=== PATIENT | female | born 1945 | race African-American/Black ===

== ENCOUNTER 2019-12-27 15:33 | Emergency (ER) | payer OTHER ==
[~2019-12-27] VITALS: Ht 170.2 cm; Wt 90.0 kg
[2019-12-27] MEDS ORDERED: TETANUS, DIPHTHERIA, PERTUSSIS VAC/PF 0.5ML (>7YR OLD) IM ONE (16:45)
[2019-12-27] MEDS ORDERED: LEVETIRACETAM 500MG PREMIX 100 ML IV ONE (16:45)
[2019-12-27] MEDS ORDERED: LIDOCAINE 1%/EPI 1:100,000 10 ML VIAL IJ ONE (16:45)
[2019-12-27] MEDS ORDERED: SODIUM CHLORIDE 0.9% 1,000 ML IV ONE (16:45)
[2019-12-27] MEDS ORDERED: BACITRACIN ZINC OINT UDPKT TOP ONE (16:45)
[2019-12-27 17:13] LABS: CHLORIDE 107 mEq/L (98-107)
[2019-12-27 17:16] LABS: BASOPHILS % 0.3 % (0.0-2.0); EOSINOPHILS % 0.6 % (0.0-5.0); HEMATOCRIT. 37.1 % (36.0-48.0); HEMOGLOBIN. 12.1 g/dL (12.0-16.0); LYMPHOCYTES % 11.3 % (20.0-50.0); MEAN CORPUSCULAR HEMOGLOBIN 28.7 pg (28.0-32.0); MEAN CORPUSCULAR VOLUME 87.9 fL (81.0-99.0); MEAN PLATELET VOLUME 7.9 fl (7.4-10.4); NEUTROPHILS % 80.8 % (40.0-76.0); PARTIAL THROMBOPLASTIN TIME 23.2 sec (23.4-31.0); PLATELET 218 x1000/uL (130-400); PROTHROMBIN TIME 10.5 sec (9.6-11.0); RED BLOOD CELL COUNT 4.22 mill/uL (4.2-5.4); RED CELL DISTRIBUTION WIDTH 13.8 % (11.6-14.6)
[2019-12-27 17:18] LABS: ETHANOL BLOOD < 10 mg/dL
[2019-12-27] MEDS ORDERED: LIDOCAINE HCL/EPINEPHRINE 1%-EPI 1:100,000 20 ML VIAL INFIL ONE (17:30)
[2019-12-27] MEDS ORDERED: ONDANSETRON HCL 4MG/2ML INJ IV STA (19:23)
[2019-12-27] MEDS ORDERED: MORPHINE SULFATE 4 MG/ML CPJ (NOT FOR IM USE) IV STA (19:23)
[2019-12-27] MEDS ORDERED: CEFAZOLIN 1000MG PREMIX 50 ML IV ONE (19:30)
[2019-12-27] MEDS ORDERED: HYDROMORPHONE HCL/PF 2MG/ML CPJ IV ONE (23:00)
[2019-12-27] MEDS ORDERED: IOHEXOL-350 100 ML BOTTLE ONE ×2 (23:00→23:07)
[2019-12-28 00:03] VITALS: BP 134/61
== END 2019-12-28 00:17 | disposition short-term general hospital (02) ==
LOC: ER 15:33
DX: R55 Syncope and collapse (principal); S22.41XA Multiple fractures of ribs, right side, initial encounter for closed fracture; S02.2XXA Fracture of nasal bones, initial encounter for closed fracture; S01.511A Laceration without foreign body of lip, initial encounter; S01.81XA Laceration without foreign body of other part of head, initial encounter; S01.512A Laceration without foreign body of oral cavity, initial encounter; G40.909 Epilepsy, unspecified, not intractable, without status epilepticus; E11.9 Type 2 diabetes mellitus without complications; V43.52XA Car driver injured in collision with other type car in traffic accident, initial encounter; Y93.89 Activity, other specified; Y92.410 Unspecified street and highway as the place of occurrence of the external cause; Z88.2 Allergy status to sulfonamides; Z88.6 Allergy status to analgesic agent; Z86.711 Personal history of pulmonary embolism; Z89.421 Acquired absence of other right toe(s)
CPT/HCPCS: 12054; 36415; 70450; 70486; 71045; 71275; 74177; 80053; 80320; 82962; 83880; 84484; 85025; 85610; 85730; 90715; 93005; 99285; J0690; J1170; J1953; J2270; J2405; J3490; J7030; Q9967; G0480